=== PATIENT | female | born 1995 | race American Indian/Alaskan Native ===

== ENCOUNTER 2017-10-15 16:10 | Emergency (ER) | payer MEDICAID ==
[2017-10-15] MEDS ORDERED: NACL 0.9% 1000 ML 0 ML ONE (17:23)
[2017-10-15] MEDS ORDERED: XYLOCAINE 1% 20 mL ONE (17:24)
== END 2017-10-15 17:00 | disposition left against medical advice (07) ==
LOC: ED 16:10
DX: R10.9 Unspecified abdominal pain (principal); Z53.21 Procedure and treatment not carried out due to patient leaving prior to being seen by health care provider
CPT/HCPCS: J7030